=== PATIENT | female | born 1940 | race Caucasian/White ===

== ENCOUNTER 2016-09-22 13:07 | Outpatient (CLI) | payer MEDICARE | END 2016-09-22 13:10 | LOC: LAB 13:07 | PROVIDERS: ATTEND Internal Medicine Cardiovascular Disease | DX: Z51.81 Encounter for therapeutic drug level monitoring (principal); Z79.01 Long term (current) use of anticoagulants; I48.0 Paroxysmal atrial fibrillation | CPT/HCPCS: 36415; 85610 ==

== ENCOUNTER 2016-11-03 13:43 | Outpatient (CLI) | payer MEDICARE | END 2016-11-03 13:44 | LOC: LAB 13:43 | PROVIDERS: ATTEND Internal Medicine Cardiovascular Disease | DX: Z51.81 Encounter for therapeutic drug level monitoring (principal); Z79.01 Long term (current) use of anticoagulants; I48.0 Paroxysmal atrial fibrillation | CPT/HCPCS: 36415; 85610 ==

== ENCOUNTER 2016-12-01 12:44 | Outpatient (CLI) | payer MEDICARE | END 2016-12-01 12:45 | LOC: LAB 12:44 | PROVIDERS: ATTEND Internal Medicine Cardiovascular Disease | DX: Z51.81 Encounter for therapeutic drug level monitoring (principal); Z79.01 Long term (current) use of anticoagulants; I48.0 Paroxysmal atrial fibrillation | CPT/HCPCS: 36415; 85610 ==

== ENCOUNTER 2017-01-02 14:04 | Outpatient (CLI) | payer MEDICARE | END 2017-01-02 14:05 | LOC: LAB 14:04 | PROVIDERS: ATTEND Internal Medicine Cardiovascular Disease | DX: Z51.81 Encounter for therapeutic drug level monitoring (principal); Z79.01 Long term (current) use of anticoagulants; I48.0 Paroxysmal atrial fibrillation | CPT/HCPCS: 36415; 85610 ==

== ENCOUNTER 2017-01-31 10:13 | Outpatient (CLI) | payer MEDICARE | END 2017-01-31 10:14 | LOC: LAB 10:13 | PROVIDERS: ATTEND Internal Medicine Cardiovascular Disease | DX: I48.0 Paroxysmal atrial fibrillation (principal) | CPT/HCPCS: 36415; 85610 ==

== ENCOUNTER 2017-02-15 08:48 | Outpatient (CLI) | payer MEDICARE | END 2017-02-15 08:50 | LOC: LAB 08:48 | PROVIDERS: ATTEND Internal Medicine Cardiovascular Disease | DX: I48.0 Paroxysmal atrial fibrillation (principal) | CPT/HCPCS: 36415; 85610 ==

== ENCOUNTER 2017-03-20 09:45 | Outpatient (CLI) | payer MEDICARE | END 2017-03-20 09:46 | LOC: LAB 09:45 | PROVIDERS: ATTEND Internal Medicine Cardiovascular Disease | DX: I48.0 Paroxysmal atrial fibrillation (principal) | CPT/HCPCS: 36415; 85610 ==

== ENCOUNTER 2017-04-05 08:41 | Outpatient (CLI) | payer MEDICARE | END 2017-04-05 08:42 | LOC: LAB 08:41 | PROVIDERS: ATTEND Family Medicine | DX: I48.0 Paroxysmal atrial fibrillation (principal) | CPT/HCPCS: 36415; 85610 ==

== ENCOUNTER 2017-04-14 12:17 | Outpatient (CLI) | payer MEDICARE | END 2017-04-14 12:27 | LOC: LAB 12:17 | PROVIDERS: ATTEND Internal Medicine Cardiovascular Disease | DX: I48.0 Paroxysmal atrial fibrillation (principal) | CPT/HCPCS: 36415; 85610 ==

== ENCOUNTER → 2017-04-20 | Outpatient (CLI) | payer MEDICARE | LOC: LAB 11:13 | PROVIDERS: ATTEND Internal Medicine Cardiovascular Disease | DX: I48.0 Paroxysmal atrial fibrillation (principal) | CPT/HCPCS: 36415; 85610 ==

== ENCOUNTER 2017-05-04 11:12 | Outpatient (CLI) | payer MEDICARE | END 2017-05-04 11:13 | LOC: LAB 11:12 | PROVIDERS: ATTEND Internal Medicine Cardiovascular Disease | DX: I48.0 Paroxysmal atrial fibrillation (principal) | CPT/HCPCS: 36415; 85610 ==

== ENCOUNTER 2017-05-05 10:29 | Outpatient (CLI) | payer MEDICARE | END 2017-05-05 10:30 | LOC: CARD 10:29 | PROVIDERS: ATTEND Internal Medicine Cardiovascular Disease | DX: I48.2 Chronic atrial fibrillation (principal); R00.2 Palpitations; I10 Essential (primary) hypertension | CPT/HCPCS: G0463 ==

== ENCOUNTER 2017-05-18 11:22 | Outpatient (CLI) | payer MEDICARE | END 2017-05-18 11:23 | LOC: LAB 11:22 | PROVIDERS: ATTEND Internal Medicine Cardiovascular Disease | DX: I48.0 Paroxysmal atrial fibrillation (principal) | CPT/HCPCS: 36415; 85610 ==

== ENCOUNTER 2017-05-25 11:20 | Outpatient (CLI) | payer MEDICARE | END 2017-05-25 11:21 | LOC: LAB 11:20 | PROVIDERS: ATTEND Internal Medicine Cardiovascular Disease | DX: I48.0 Paroxysmal atrial fibrillation (principal) | CPT/HCPCS: 36415; 85610 ==

== ENCOUNTER 2017-06-01 11:25 | Outpatient (CLI) | payer MEDICARE | END 2017-06-01 11:26 | LOC: LAB 11:25 | PROVIDERS: ATTEND Internal Medicine Cardiovascular Disease | DX: I48.0 Paroxysmal atrial fibrillation (principal) | CPT/HCPCS: 36415; 85610 ==

== ENCOUNTER 2017-06-07 10:06 | Outpatient (CLI) | payer MEDICARE | END 2017-06-07 10:07 | LOC: LAB 10:06 | PROVIDERS: ATTEND Internal Medicine Cardiovascular Disease | DX: I48.0 Paroxysmal atrial fibrillation (principal) | CPT/HCPCS: 36415; 85610 ==

== ENCOUNTER → 2017-06-09 | Outpatient (CLI) | payer MEDICARE | LOC: LAB 10:35 | PROVIDERS: ATTEND Internal Medicine Cardiovascular Disease | DX: I48.0 Paroxysmal atrial fibrillation (principal) | CPT/HCPCS: 36415; 85610 ==

== ENCOUNTER 2017-06-21 10:37 | Outpatient (CLI) | payer MEDICARE | END 2017-06-21 10:40 | LOC: LAB 10:37 | PROVIDERS: ATTEND Internal Medicine Cardiovascular Disease | DX: I48.0 Paroxysmal atrial fibrillation (principal) | CPT/HCPCS: 36415; 85610 ==

== ENCOUNTER 2017-06-28 09:52 | Outpatient (CLI) | payer MEDICARE | END 2017-06-28 10:00 | LOC: LAB 09:52 | PROVIDERS: ATTEND Internal Medicine Cardiovascular Disease | DX: I48.0 Paroxysmal atrial fibrillation (principal) | CPT/HCPCS: 36415; 85610 ==

== ENCOUNTER 2017-07-03 10:31 | Outpatient (CLI) | payer MEDICARE | END 2017-07-03 10:32 | LOC: LAB 10:31 | PROVIDERS: ATTEND Internal Medicine Cardiovascular Disease | DX: I48.0 Paroxysmal atrial fibrillation (principal) | CPT/HCPCS: 36415; 85610 ==

== ENCOUNTER 2017-07-10 09:45 | Outpatient (CLI) | payer MEDICARE | END 2017-07-10 09:46 | LOC: LAB 09:45 | PROVIDERS: ATTEND Internal Medicine Cardiovascular Disease | DX: I48.0 Paroxysmal atrial fibrillation (principal) | CPT/HCPCS: 36415; 85610 ==

== ENCOUNTER 2017-07-17 09:25 | Outpatient (CLI) | payer MEDICARE | END 2017-07-17 09:35 | LOC: LAB 09:25 | PROVIDERS: ATTEND Internal Medicine Cardiovascular Disease | DX: I48.0 Paroxysmal atrial fibrillation (principal) | CPT/HCPCS: 36415; 85610 ==

== ENCOUNTER 2017-07-25 09:49 | Outpatient (CLI) | payer MEDICARE | END 2017-07-25 09:50 | LOC: LAB 09:49 | PROVIDERS: ATTEND Internal Medicine Cardiovascular Disease | DX: I48.0 Paroxysmal atrial fibrillation (principal) | CPT/HCPCS: 36415; 85610 ==

== ENCOUNTER 2017-08-01 09:46 | Outpatient (CLI) | payer MEDICARE | END 2017-08-01 09:47 | LOC: LAB 09:46 | PROVIDERS: ATTEND Internal Medicine Cardiovascular Disease | DX: I48.0 Paroxysmal atrial fibrillation (principal) | CPT/HCPCS: 36415; 85610 ==

== ENCOUNTER 2017-08-24 11:17 | Outpatient (CLI) | payer MEDICARE ==
[2017-08-24 11:51] LABS: BASOPHILS % 0.8 (0.0-1.5); EOSINOPHILS % 2.9 % (0.0-6.8); MEAN CORPUSCULAR HEMOGLOBIN 32.6 pg (28.0-34.0); MEAN CORPUSCULAR VOLUME 95.7 fl (80.0-100.0); MONOCYTES % 6.2 % (0.0-11.0); NEUTROPHILS # 4.5 # k/uL (1.4-7.7)
[2017-08-24 12:21] LABS: eGFR (African) > 60; eGFR (Non-African) > 60
[2017-08-24 22:24] LABS: VITAMIN D, 25-HYDROXY 41 ng/mL (30-100)
== END 2017-08-24 11:30 ==
LOC: LAB 11:17
PROVIDERS: ATTEND Internal Medicine Cardiovascular Disease
DX: I48.0 Paroxysmal atrial fibrillation (principal); E55.9 Vitamin D deficiency, unspecified; R53.83 Other fatigue; E53.9 Vitamin B deficiency, unspecified
CPT/HCPCS: 36415; 80053; 82306; 82607; 85025; 85610

== ENCOUNTER 2017-08-31 11:09 | Outpatient (CLI) | payer MEDICARE | END 2017-08-31 11:10 | LOC: LAB 11:09 | PROVIDERS: ATTEND Internal Medicine Cardiovascular Disease | DX: I48.0 Paroxysmal atrial fibrillation (principal) | CPT/HCPCS: 36415; 85610 ==

== ENCOUNTER 2017-09-14 10:17 | Outpatient (CLI) | payer MEDICARE | END 2017-09-14 10:18 | LOC: LAB 10:17 | PROVIDERS: ATTEND Internal Medicine Cardiovascular Disease | DX: Z79.01 Long term (current) use of anticoagulants (principal) | CPT/HCPCS: 36415; 85610 ==

== ENCOUNTER 2017-09-28 11:14 | Outpatient (CLI) | payer MEDICARE | END 2017-09-28 11:15 | LOC: LAB 11:14 | PROVIDERS: ATTEND Internal Medicine Cardiovascular Disease | DX: Z79.01 Long term (current) use of anticoagulants (principal) | CPT/HCPCS: 36415; 85610 ==

== ENCOUNTER 2017-10-13 11:06 | Outpatient (CLI) | payer MEDICARE | END 2017-10-13 11:07 | LOC: LAB 11:06 | PROVIDERS: ATTEND Internal Medicine Cardiovascular Disease | DX: Z79.01 Long term (current) use of anticoagulants (principal) | CPT/HCPCS: 36415; 85610 ==

== ENCOUNTER 2017-10-20 10:31 | Outpatient (CLI) | payer MEDICARE | END 2017-10-20 10:32 | LOC: LAB 10:31 | PROVIDERS: ATTEND Internal Medicine Cardiovascular Disease | DX: Z79.01 Long term (current) use of anticoagulants (principal) | CPT/HCPCS: 36415; 85610 ==

== ENCOUNTER 2017-10-27 11:01 | Outpatient (CLI) | payer MEDICARE | END 2017-10-27 11:02 | LOC: LAB 11:01 | PROVIDERS: ATTEND Internal Medicine Cardiovascular Disease | DX: Z79.01 Long term (current) use of anticoagulants (principal) | CPT/HCPCS: 36415; 85610 ==

== ENCOUNTER 2017-11-03 09:39 | Outpatient (CLI) | payer MEDICARE | END 2017-11-03 09:40 | LOC: LAB 09:39 | PROVIDERS: ATTEND Internal Medicine Cardiovascular Disease | DX: Z79.01 Long term (current) use of anticoagulants (principal) | CPT/HCPCS: 36415; 85610 ==

== ENCOUNTER 2017-11-17 10:07 | Outpatient (CLI) | payer MEDICARE | END 2017-11-17 13:33 | LOC: LAB 10:07 | PROVIDERS: ATTEND Internal Medicine Cardiovascular Disease | DX: Z79.01 Long term (current) use of anticoagulants (principal) | CPT/HCPCS: 36415; 85610 ==

== ENCOUNTER 2017-11-27 10:07 | Outpatient (CLI) | payer MEDICARE | END 2017-11-27 10:10 | LOC: LAB 10:07 | PROVIDERS: ATTEND Internal Medicine Cardiovascular Disease | DX: Z79.01 Long term (current) use of anticoagulants (principal) | CPT/HCPCS: 36415; 85610 ==

== ENCOUNTER 2017-12-11 10:45 | Outpatient (CLI) | payer MEDICARE | END 2017-12-11 10:46 | LOC: LAB 10:45 | PROVIDERS: ATTEND Internal Medicine Cardiovascular Disease | DX: Z79.01 Long term (current) use of anticoagulants (principal) | CPT/HCPCS: 36415; 85610 ==

== ENCOUNTER 2017-12-25 10:39 | Outpatient (CLI) | payer MEDICARE | END 2017-12-25 10:40 | LOC: LAB 10:39 | PROVIDERS: ATTEND Internal Medicine Cardiovascular Disease | DX: Z79.01 Long term (current) use of anticoagulants (principal) | CPT/HCPCS: 36415; 85610 ==

== ENCOUNTER 2018-01-01 10:32 | Outpatient (CLI) | payer MEDICARE | END 2018-01-01 10:33 | LOC: LAB 10:32 | PROVIDERS: ATTEND Internal Medicine Cardiovascular Disease | DX: Z79.01 Long term (current) use of anticoagulants (principal) | CPT/HCPCS: 36415; 85610 ==

== ENCOUNTER 2018-01-15 08:55 | Outpatient (CLI) | payer MEDICARE | END 2018-01-15 08:56 | LOC: LAB 08:55 | PROVIDERS: ATTEND Internal Medicine Cardiovascular Disease | DX: Z79.01 Long term (current) use of anticoagulants (principal) | CPT/HCPCS: 36415; 85610 ==

== ENCOUNTER 2018-01-30 09:18 | Outpatient (CLI) | payer MEDICARE | END 2018-01-30 09:20 | LOC: LAB 09:18 | PROVIDERS: ATTEND Internal Medicine Cardiovascular Disease | DX: Z79.01 Long term (current) use of anticoagulants (principal) | CPT/HCPCS: 36415; 85610 ==

== ENCOUNTER 2018-02-27 11:22 | Outpatient (CLI) | payer MEDICARE | END 2018-02-27 11:23 | LOC: LAB 11:22 | PROVIDERS: ATTEND Internal Medicine Cardiovascular Disease | DX: Z79.01 Long term (current) use of anticoagulants (principal) | CPT/HCPCS: 36415; 85610 ==

== ENCOUNTER 2018-03-27 09:30 | Outpatient (CLI) | payer MEDICARE | END 2018-03-27 09:32 | LOC: LAB 09:30 | PROVIDERS: ATTEND Internal Medicine Cardiovascular Disease | DX: Z79.01 Long term (current) use of anticoagulants (principal) | CPT/HCPCS: 36415; 85610 ==

== ENCOUNTER 2018-05-08 13:10 | Outpatient (CLI) | payer MEDICARE | END 2018-05-08 13:11 | LOC: LAB 13:10 | PROVIDERS: ATTEND Internal Medicine Cardiovascular Disease | DX: Z79.01 Long term (current) use of anticoagulants (principal) | CPT/HCPCS: 36415; 85610 ==

== ENCOUNTER 2018-05-22 09:52 | Outpatient (CLI) | payer MEDICARE | END 2018-05-22 09:53 | LOC: LAB 09:52 | PROVIDERS: ATTEND Internal Medicine Cardiovascular Disease | DX: Z79.01 Long term (current) use of anticoagulants (principal) | CPT/HCPCS: 36415; 85610 ==

== ENCOUNTER 2018-06-05 10:50 | Outpatient (CLI) | payer MEDICARE | END 2018-06-05 10:52 | LOC: LAB 10:50 | PROVIDERS: ATTEND Internal Medicine Cardiovascular Disease | DX: Z79.01 Long term (current) use of anticoagulants (principal) | CPT/HCPCS: 36415; 85610 ==

== ENCOUNTER 2018-07-03 10:41 | Outpatient (CLI) | payer MEDICARE | END 2018-07-03 10:42 | LOC: LAB 10:41 | PROVIDERS: ATTEND Internal Medicine Cardiovascular Disease | DX: Z79.01 Long term (current) use of anticoagulants (principal) | CPT/HCPCS: 36415; 85610 ==

== ENCOUNTER 2018-07-18 11:04 | Outpatient (CLI) | payer MEDICARE | END 2018-07-18 11:05 | LOC: LAB 11:04 | PROVIDERS: ATTEND Internal Medicine Cardiovascular Disease | DX: Z79.01 Long term (current) use of anticoagulants (principal) | CPT/HCPCS: 36415; 85610 ==

== ENCOUNTER 2018-07-25 10:52 | Outpatient (CLI) | payer MEDICARE | END 2018-07-25 10:53 | LOC: LAB 10:52 | PROVIDERS: ATTEND Clinical Nurse Specialist Medical-Surgical | DX: M80.051 Age-related osteoporosis with current pathological fracture, right femur (principal); E55.9 Vitamin D deficiency, unspecified; Z87.310 Personal history of (healed) osteoporosis fracture; Z82.62 Family history of osteoporosis | CPT/HCPCS: 36415; 82310 ==

== ENCOUNTER 2018-08-01 11:27 | Outpatient (CLI) | payer MEDICARE | END 2018-08-01 11:30 | LOC: LAB 11:27 | PROVIDERS: ATTEND Internal Medicine Cardiovascular Disease | DX: Z79.01 Long term (current) use of anticoagulants (principal) | CPT/HCPCS: 36415; 85610 ==

== ENCOUNTER 2018-09-05 11:00 | Outpatient (CLI) | payer MEDICARE | END 2018-09-05 11:03 | LOC: LAB 11:00 | PROVIDERS: ATTEND Internal Medicine Cardiovascular Disease | DX: Z79.01 Long term (current) use of anticoagulants (principal) | CPT/HCPCS: 36415; 85610 ==

== ENCOUNTER 2018-09-12 15:40 | Outpatient (CLI) | payer MEDICARE | END 2018-09-12 15:42 | LOC: LAB 15:40 | PROVIDERS: ATTEND Internal Medicine Cardiovascular Disease | DX: Z79.01 Long term (current) use of anticoagulants (principal) | CPT/HCPCS: 36415; 85610 ==

== ENCOUNTER 2018-09-19 14:15 | Outpatient (CLI) | payer MEDICARE | END 2018-09-19 14:17 | LOC: LAB 14:15 | PROVIDERS: ATTEND Internal Medicine Cardiovascular Disease | DX: Z79.01 Long term (current) use of anticoagulants (principal) | CPT/HCPCS: 36415; 85610 ==

== ENCOUNTER 2018-10-03 14:26 | Outpatient (CLI) | payer MEDICARE | END 2018-10-03 14:45 | LOC: LAB 14:26 | PROVIDERS: ATTEND Internal Medicine Cardiovascular Disease | DX: Z79.01 Long term (current) use of anticoagulants (principal) | CPT/HCPCS: 36415; 85610 ==

== ENCOUNTER 2018-10-24 14:12 | Outpatient (CLI) | payer MEDICARE | END 2018-10-24 14:14 | LOC: LAB 14:12 | PROVIDERS: ATTEND Internal Medicine Cardiovascular Disease | DX: Z79.01 Long term (current) use of anticoagulants (principal) | CPT/HCPCS: 36415; 85610 ==

== ENCOUNTER 2018-11-21 11:19 | Outpatient (CLI) | payer MEDICARE | END 2018-11-21 11:20 | LOC: LAB 11:19 | PROVIDERS: ATTEND Internal Medicine Cardiovascular Disease | DX: Z79.01 Long term (current) use of anticoagulants (principal) | CPT/HCPCS: 36415; 85610 ==

== ENCOUNTER 2018-12-20 09:22 | Outpatient (CLI) | payer MEDICARE | END 2018-12-20 09:23 | LOC: LAB 09:22 | PROVIDERS: ATTEND Internal Medicine Cardiovascular Disease | DX: Z79.01 Long term (current) use of anticoagulants (principal) | CPT/HCPCS: 36415; 85610 ==

== ENCOUNTER 2018-12-27 10:48 | Outpatient (CLI) | payer MEDICARE | END 2018-12-27 10:50 | LOC: LAB 10:48 | PROVIDERS: ATTEND Internal Medicine Cardiovascular Disease | DX: Z79.01 Long term (current) use of anticoagulants (principal) | CPT/HCPCS: 36415; 85610 ==

== ENCOUNTER 2019-01-25 10:49 | Outpatient (CLI) | payer MEDICARE | END 2019-01-25 10:50 | LOC: LAB 10:49 | PROVIDERS: ATTEND Internal Medicine Cardiovascular Disease | DX: Z79.01 Long term (current) use of anticoagulants (principal) | CPT/HCPCS: 36415; 85610 ==

== ENCOUNTER 2019-02-22 11:23 | Outpatient (CLI) | payer MEDICARE | END 2019-02-22 11:25 | LOC: LAB 11:23 | PROVIDERS: ATTEND Internal Medicine Cardiovascular Disease | DX: Z79.01 Long term (current) use of anticoagulants (principal); Z51.81 Encounter for therapeutic drug level monitoring | CPT/HCPCS: 36415; 85610 ==

== ENCOUNTER 2019-03-26 10:48 | Outpatient (CLI) | payer MEDICARE | END 2019-03-26 10:50 | LOC: LAB 10:48 | PROVIDERS: ATTEND Internal Medicine Cardiovascular Disease | DX: Z51.81 Encounter for therapeutic drug level monitoring (principal); Z79.01 Long term (current) use of anticoagulants | CPT/HCPCS: 36415; 85610 ==

== ENCOUNTER 2019-04-11 14:23 | Outpatient (CLI) | payer MEDICARE | END 2019-04-11 14:25 | LOC: LAB 14:23 | PROVIDERS: ATTEND Internal Medicine Cardiovascular Disease | DX: Z51.81 Encounter for therapeutic drug level monitoring (principal); Z79.01 Long term (current) use of anticoagulants | CPT/HCPCS: 36415; 85610 ==

== ENCOUNTER 2019-05-02 11:13 | Outpatient (CLI) | payer MEDICARE | END 2019-05-02 11:15 | LOC: LAB 11:13 | PROVIDERS: ATTEND Internal Medicine Cardiovascular Disease | DX: Z79.01 Long term (current) use of anticoagulants (principal); Z51.81 Encounter for therapeutic drug level monitoring | CPT/HCPCS: 36415; 85610 ==

== ENCOUNTER 2019-05-29 10:17 | Outpatient (CLI) | payer MEDICARE | END 2019-05-29 10:19 | LOC: LAB 10:17 | PROVIDERS: ATTEND Internal Medicine Cardiovascular Disease | DX: Z51.81 Encounter for therapeutic drug level monitoring (principal); Z79.01 Long term (current) use of anticoagulants | CPT/HCPCS: 36415; 85610 ==

== ENCOUNTER 2019-06-03 08:06 | Outpatient (CLI) | payer MEDICARE | END 2019-06-03 08:08 | LOC: LAB 08:06 | PROVIDERS: ATTEND Clinical Nurse Specialist Medical-Surgical | DX: M81.0 Age-related osteoporosis without current pathological fracture (principal); E55.9 Vitamin D deficiency, unspecified; Z87.310 Personal history of (healed) osteoporosis fracture | CPT/HCPCS: 36415; 82306; 82310 ==

== ENCOUNTER 2019-06-27 09:45 | Outpatient (CLI) | payer MEDICARE | END 2019-06-27 09:50 | LOC: LAB 09:45 | PROVIDERS: ATTEND Internal Medicine Cardiovascular Disease | DX: Z51.81 Encounter for therapeutic drug level monitoring (principal); Z79.01 Long term (current) use of anticoagulants | CPT/HCPCS: 36415; 85610 ==

== ENCOUNTER 2019-07-30 08:44 | Outpatient (CLI) | payer MEDICARE | END 2019-07-30 08:49 | LOC: LAB 08:44 | PROVIDERS: ATTEND Internal Medicine Cardiovascular Disease | DX: Z79.01 Long term (current) use of anticoagulants (principal) | CPT/HCPCS: 36415; 85610 ==

== ENCOUNTER 2019-09-02 08:47 | Outpatient (CLI) | payer MEDICARE | END 2019-09-02 08:52 | LOC: LAB 08:47 | PROVIDERS: ATTEND Internal Medicine Cardiovascular Disease | DX: Z51.81 Encounter for therapeutic drug level monitoring (principal); Z79.01 Long term (current) use of anticoagulants | CPT/HCPCS: 36415; 85610 ==